=== PATIENT | male | born 1985 | race Caucasian/White ===

== ENCOUNTER 2017-12-03 12:25 | Emergency (ER) | payer MEDICAID, SELFPAY ==
[2017-12-03 12:26] VITALS: BP 141/96; PULSE 62; RESP 18; TEMP 36.6; O2SAT 100; BMI 25.2
--- NOTE | 2017-12-03 13:05 | ED.VISSUMM ---
- ER Visit Summary Date of Service: 12/03/17 Chief Complaint: Dental pain History of Present Illness: The patient is a 32 M with no primary care physician or dentist. He reports that he has pain in his left mandibular first and second molars that began approximately a week ago. Is a sharp pain is 10 out of 10 at worst and 7-10 currently. Is worsened by eating. Is relieved by ibuprofen and Suboxone. Physical Examination: Vitals: Stable. Afebrile. Mouth: No trismus. No edema of the floor of the mouth. Pain with percussion of left mandibular first and second molars which are eroded to the gumline. There is widespread dental decay. General: A&O x 3. NAD. Cardiovascular exam: Regular rate and rhythm, no murmur, rub or gallop. Respiratory exam: Clear to auscultation bilaterally. No wheezes or stridor. Abdominal exam: Soft, nontender, nondistended, normal bowel sounds. No peritoneal signs. Extremity: No clubbing, cyanosis, or edema. Emergency Department Course and Treatment: Patient was treated with penicillin. Treatment Plan: Patient is instructed to take the penicillin as prescribed. Follow-up the dentist as soon as possible. Continue Suboxone and ibuprofen. Disposition: To home in improved and stable condition. Impression: 1. Dental pain. This note was generated with [employer] dictation software. It may contain incorrect words, spelling, and punctuation that were not noted in review of the chart prior to signing ED Disposition - Plan for ED Patient: Disposition: Home or Assisted Living Chief Complaint: Dental Instructions: ED Tooth Pain Prescriptions: Penicillin V Potassium 500 mg PO 4X/DAY #40 tablet Referrals: Dentist,Your [STAFF PHYSICIAN] - As soon as possible
[2017-12-03] MEDS: Penicillin Vk 250 MG Tablet 500 MG PO (13:15)
== END 2017-12-03 13:19 | disposition home or self-care (01) ==
LOC: ED 13:15
PROVIDERS: Emergency Provider Emergency Medicine
DX: K08.89 Other specified disorders of teeth and supporting structures (principal); R51 Headache; F17.200 Nicotine dependence, unspecified, uncomplicated; K02.9 Dental caries, unspecified
CPT/HCPCS: 99283

== ENCOUNTER 2018-04-15 17:26 | Emergency (ER) | payer MEDICAID, SELFPAY ==
[2018-04-15 17:27] VITALS: BP 123/60; PULSE 72; RESP 14; TEMP 36.5; O2SAT 98; BMI 26.4
--- NOTE | 2018-04-15 17:30 | ED.RN ---
PT IS ON SUBOXONE. HE HAS REQUEST THAT OPIATES BE PLACE ON HIS ALLERGY LIST. Yamil LOCKETT RN [phone]
--- NOTE | 2018-04-15 17:40 | RAD_ITS ---
STUDY: X-RAY - LEFT HAND REASON FOR EXAM: Male, 32 years old. Pain after fall, possible puncture wound TECHNIQUE: Three view(s) of the hand were obtained. COMPARISON: None. FINDINGS: Bones: There are no acute osseous abnormalities. Joints: The visualized joints are unremarkable. Soft tissues: The soft tissues are unremarkable. Foreign body: None RAD/Hand Min 3 Views IMPRESSION: No acute osseous abnormalities are seen in the left hand. There are no radiopaque foreign bodies visualized with attention to the proximal palm. Electronically Signed: Katelyn Peterson MD at 18:33 EDT Tel Direct: [phone], Service support ,
--- NOTE | 2018-04-15 19:59 | ED.DCSUM_ITS ---
- ER Visit Summary Date of Service: 04/15/18 Chief Complaint: Pain and redness palm left hand History of Present Illness: The patient is a 32 M who is left-hand dominant presents with injury to his left hand. He is concerned he has a foreign body that is causing the pain, swelling and redness. He reports drainage. He attempted to open it with a knife. He is not immune suppressed. He requested no opiates. He denies fever, chills or night sweats. He denies history rheumatic fever, murmur or mitral valve prolapse. Physical Examination: Vital signs noted. He has a small area of erythema at the junction of the hyperthenar eminence and thenar eminence left hand. There is drainage with pressure. The flexor digitorum superficialis and flexor digitorum profundus are intact for the index long and ring finger. Sensation is normal. Capillary refill is normal. There is no lymphangitis. There is no epitrochlear lymphadenopathy. Heart is regular without murmur, gallop or rub. S1 and S2 are normal. Lungs are clear to auscultation with good movement of air bilaterally. Test Results: Three-view x-ray of the hand was obtained with no foreign body noted. Emergency Department Course and Treatment: X-ray was obtained to evaluate for foreign body, metallic. The wound was anesthetized with 1% lidocaine for local filtration. An incision was made using a 15 blade. Purulent material was expressed. The wound was explored. A wick was placed. Since there is no cellulitis antibiotics are not indicated. Treatment Plan: I&D of simple subcutaneous abscess left hand Disposition: Discharged to home with work restrictions and follow-up with Dr. Valencia Ornelas Impression: Subcutaneous abscess left hand status post I&D This note was generated with [employer] dictation software. It may contain incorrect words, spelling, and punctuation that were not noted in review of the chart prior to signing ED Disposition - Plan for ED Patient: Disposition: Home or Assisted Living Chief Complaint: Upper Extremity Injury Instructions: ED Abscess IandD Referrals: Care Physician,No Primary [Primary Care Provider] - Valencia Ornelas MD [STAFF PHYSICIAN] - 2 Days for wound check
[2018-04-15 20:00] VITALS: BP 113/81; PULSE 64; RESP 18; O2SAT 99
== END 2018-04-15 20:02 | disposition home or self-care (01) ==
PROVIDERS: Emergency Provider Emergency Medicine
DX: L02.512 Cutaneous abscess of left hand (principal); Z87.891 Personal history of nicotine dependence
CPT/HCPCS: 10060; 73130; 99282